=== PATIENT | female | born 1975 | race Two or more races ===

== ENCOUNTER 2016-12-09 10:33 | Emergency (ER) | payer BC, MEDICAID ==
[~2016-12-09] VITALS: Ht 180.3 cm; Wt 87.0 kg
[2016-12-09] MEDS ORDERED: KETOROLAC 60MG/2ML VIAL IM ONE (12:00)
[2016-12-09 12:37] LABS: HEMATOCRIT. 36.3 % (36.0-48.0); MEAN CORPUSCULAR HEMOGLOBIN 29.6 pg (28.0-32.0); MEAN CORPUSCULAR VOLUME 89.5 fL (81.0-99.0); MEAN PLATELET VOLUME 7.9 fl (7.4-10.4); PLATELET 293 x1000/uL (130-400); RED BLOOD CELL COUNT 4.05 mill/uL (4.2-5.4); RED CELL DISTRIBUTION WIDTH 15.7 % (11.6-14.6)
[2016-12-09 12:49] LABS: CHLORIDE 103 mEq/L (98-107)
[2016-12-09 12:57] LABS: CARBON DIOXIDE 24 mEq/L (21-32)
[2016-12-09 13:17] LABS: CLARITY URINE CLOUDY (CLEAR); COLOR URINE YELLOW (YELLOW); GLUCOSE URINE NEGATIVE (NEGATIVE); KETONES URINE 2+ (NEGATIVE); LEUKOCYTE ESTERASE URINE 3+ (NEGATIVE); NITRITE URINE NEGATIVE (NEGATIVE); OCCULT BLOOD URINE 2+ (NEGATIVE); PH URINE >=9.0 (4.5-8.0); PROTEIN URINE 1+ (NEGATIVE); SPECIFIC GRAVITY URINE 1.018 (1.005-1.030)
[2016-12-09 13:21] LABS: PLATELET ESTIMATE NORMAL
[2016-12-09 14:00] VITALS: BP 129/72
== END 2016-12-09 14:58 | disposition home or self-care (01) ==
LOC: ER 13:19
DX: D25.9 Leiomyoma of uterus, unspecified (principal); Z88.0 Allergy status to penicillin
CPT/HCPCS: 36415; 76830; 76856; 80053; 81001; 81025; 85025; 96372; 99285; J1885; Z7610

== ENCOUNTER 2020-10-11 15:23 | Emergency (ER) | payer BC, MEDICAID ==
[~2020-10-11] VITALS: Ht 182.9 cm; Wt 92.0 kg
[2020-10-11] MEDS ORDERED: KETOROLAC 30MG/ML VIAL IM ONE (17:00)
[2020-10-11] MEDS ORDERED: MOBI7 MT (18:03)
[2020-10-11 18:20] VITALS: BP 110/87
== END 2020-10-11 18:21 | disposition home or self-care (01) ==
LOC: ER 15:23
DX: M25.562 Pain in left knee (principal); M25.561 Pain in right knee; M25.572 Pain in left ankle and joints of left foot; J45.909 Unspecified asthma, uncomplicated; Z88.0 Allergy status to penicillin; Z98.890 Other specified postprocedural states; W10.1XXA Fall (on)(from) sidewalk curb, initial encounter; Y93.89 Activity, other specified; Y92.89 Other specified places as the place of occurrence of the external cause; Y99.8 Other external cause status
CPT/HCPCS: 73562; 73610; 96372; 99284; J1885